=== PATIENT | male | born 1995 | race Caucasian/White ===

== ENCOUNTER 2016-08-04 10:42 | Emergency (ER) | payer OTHER ==
[~2016-08-04] VITALS: Ht 167.6 cm; Wt 68.5 kg
[2016-08-04 10:49] VITALS: Ht 167.6 cm; Wt 68.5 kg
[2016-08-04] MEDS ORDERED: CARB15DR48 BOTH EARS (12:35)
--- NOTE | 2016-08-04 12:40 | ERD ---
ER Documentation Chief Complaint Date/Time DATE: 08/04/16 TIME: 12:38 Chief Complaint UNABLE TO HEAR FROM RT EAR X 2 WEEKS HPI This is a 20-year-old male presents to the ER stating he is unable to hear from his right ear for the last 2 weeks. Patient denies any ear pain. He denies any recent cough or cold symptoms. He denies any ear discharge. Patient was trying to clean his ear with Q-tips. Denies any headaches, loss of balance, loss of consciousness. ROS 12 point review of systems was done, all negative except per HPI. Medications Home Meds Active Scripts Carbamide Peroxide* (Debrox*) 6.5% - 15 Ml Drops, 10 DROP BOTH EARS BID for 5 Days, BOTTLE Prov:BRENTMAURA C 08/04/16 Allergies Allergies: Coded Allergies: No Known Allergy (Verified Allergy, Unknown, 09/19/08) PMhx/Soc History of Surgery: Yes (APPENDIX) Anesthesia Reaction: No Hx Neurological Disorder: No Hx Respiratory Disorders: No Hx Cardiac Disorders: No Hx Psychiatric Problems: No Hx Miscellaneous Medical Probl: No Hx Alcohol Use: No Hx Substance Use: No Hx Tobacco Use: No Physical Exam Vitals Vital Signs Date Time Temp Pulse Resp B/P Pulse Ox O2 Delivery O2 Flow Rate FiO2 08/04/16 10:49 98.6 90 18 144/91 98 Physical Exam GENERAL: The patient is well developed and appropriate for usual state of health , in no apparent distress. HEENT: Atraumatic. Conjunctivae are pink. Pupils equal, round, and reactive to light. Extraocular muscles are grossly intact. Bilateral cerumen impaction. The oropharynx is clear with no erythema or exudates. NECK: C-spine is soft and supple. There is no cervical lymphadenopathy. CHEST: Clear to auscultation bilaterally. There are no rales, wheezes or rhonchi. NEURO: Alert and oriented. CN 2-12 are intact. Procedures/MDM This is a 20-year-old male presents with left appearing to his right ear. Patient did have cerumen impaction. Irrigation was attempted in the ER and some wax cannot however there was still some laxatives in the patient's care. Patient will be sent home with Debrox. Needs to follow-up with his primary care doctor within 1-2 days or return to ER sooner if symptoms worsen. My medical decision making was shared with the patient, he understands and agrees with plan. Departure Diagnosis: Primary Impression: Cerumen impaction Condition: Stable Patient Instructions: Cerumen Impaction, Home Care Additional Instructions: Call your primary care doctor TOMORROW for an appointment during the next 1-2 days.See the doctor sooner or return here if your condition worsens before your appointment time. AMURA KENNEDY Aug 04, 2016 12:40
== END 2016-08-04 12:48 | disposition home or self-care (01) ==
LOC: FTE 10:42
DX: H61.21 Impacted cerumen, right ear (principal)
CPT/HCPCS: 69209; Z7502